=== PATIENT | male | born 1985 | race Asian ===

== ENCOUNTER 2020-02-26 16:42 | Emergency (ER) | payer OTHER ==
[~2020-02-26] VITALS: Ht 167.6 cm; Wt 81.2 kg
[2020-02-26 16:51] VITALS: Ht 167.6 cm; Wt 81.2 kg
[2020-02-26 18:38] VITALS: BP 102/67
== END 2020-02-26 18:38 | disposition home or self-care (01) ==
LOC: ED 16:42
DX: S76.011A Strain of muscle, fascia and tendon of right hip, initial encounter (principal); S40.811A Abrasion of right upper arm, initial encounter; X58.XXXA Exposure to other specified factors, initial encounter; Y93.89 Activity, other specified; Y92.89 Other specified places as the place of occurrence of the external cause; Y99.8 Other external cause status
CPT/HCPCS: 90715; Q0163

== ENCOUNTER 2020-06-20 12:40 | Emergency (ER) | payer OTHER ==
[~2020-06-20] VITALS: Ht 167.6 cm; Wt 84.8 kg
[2020-06-20 13:15] VITALS: BP 129/71; Ht 167.6 cm; Wt 84.8 kg
[2020-06-20] MEDS ORDERED: IBU600 M2 PO (15:05)
[2020-06-20] MEDS ORDERED: POLYSPORIN1 OI1 TOP (15:05)
[2020-06-20] MEDS ORDERED: ULTRAM50 MG PO (15:05)
== END 2020-06-20 15:45 | disposition home or self-care (01) ==
LOC: ED 12:40
DX: S62.631A Displaced fracture of distal phalanx of left index finger, initial encounter for closed fracture (principal); X58.XXXA Exposure to other specified factors, initial encounter; Y93.89 Activity, other specified; Y92.89 Other specified places as the place of occurrence of the external cause; Y99.8 Other external cause status
CPT/HCPCS: A4570